=== PATIENT | female | born 2000 | race African-American/Black ===

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

== ENCOUNTER 2019-05-04 20:14 | Emergency (ER) ==
[2019-05-04 20:21] VITALS: BP 145/90; TEMP 98.6; BMI 21.4
[2019-05-04] MEDS ORDERED: TORADOL IM STA (20:54)
--- NOTE | 2019-05-04 20:59 | ED.PDOC ---
General ED Provider: Dr. SANDRA CHRISTOPHER Chief Complaint: Knee Pain/Injury Stated Complaint: Patient was lifing a "casualty " at training yesterday when they moved causing her to twist. The area is swollen mostly on the superior aspece of the knee. Has pain when she bends her knee. Time Seen by Physician: 20:55 Information Source: Patient Exam Limitations: No limitations Primary Care Provider: CHAU GLOVER Nursing and Triage Documentation Reviewed and Agree: Yes Does patient meet sepsis criteria?: No System Inflammatory Response Syndrome: Not Applicable Sepsis Protocol: For patient's 13 years and over: Temp is 96.8 and below OR 101 and greater Pulse >90 BPM Resp >20/minute Acutely Altered Mental Status Are patient's symptoms suggestive of a new infection, such as: -Pneumonia -Skin, Soft Tissue -Endocarditis -UTI -Bone, Joint Infection -Implantable Device -Acute Abdominal Infection -Wound Infection -Meningitis -Blood Stream Catheter Infection -Unknown Musculoskeletal Complaint Exam - Knee Pain Complaint/Exam Mechanism of Injury: Reports: Trauma Onset/Duration: 1 day Symptoms Are: Still present Onset of Pain: Reports: Immediate, Post accident Initial Severity: Moderate Current Severity: Moderate Location: Reports: Discrete (Suprapatella ) Character: Reports: Aching, Throbbing Alleviating: Reports: None Aggravating: Reports: Movement (Bending Knee ), Weight bearing Associated Signs and Symptoms: Reports: Swelling (warmth ) Able to Bear Weight: Yes (but has pain) Septic Arthritis Risk Factors: Reports: None Gout Risk Factors: Reports: None Knee Findings: Present: Swelling, Tenderness Tenderness: Present: Pre-patellar Merlin Test Positive: No Lud[place]ina Test Positive: No Limited Range of Motion: Present: Active, Patellar apprehension Knee Picture: 1 - tenderness to palpation and warmth Differential Diagnoses: Closed Fracture, Sprain, Strain Review of Systems - Review Of Systems Constitutional: Reports: No symptoms Eyes: Reports: No symptoms Ears, Nose, Mouth, Throat: Reports: No symptoms Respiratory: Reports: No symptoms Cardiac: Reports: No symptoms GI: Reports: No symptoms : Reports: No symptoms Musculoskeletal: Reports: Joint pain (Left knee ) Skin: Reports: No symptoms Neurological: Reports: No symptoms Endocrine: Reports: No symptoms Hematologic/Lymphatic: Reports: No symptoms All Other Systems: Reviewed and Negative Past Medical History - Past Medical History Previously Healthy: Yes Endocrine: Reports: None Cardiovascular: Reports: None Respiratory: Reports: None Hematological: Reports: None Gastrointestinal: Reports: None Genitourinary: Reports: None Neuro/Psych: Reports: None Musculoskeletal: Reports: None Cancer: Reports: None Last Menstrual Period: on bith control - Surgical History General Surgical History: Reports: None - Family History Family History: Reports: None - Social History Smoking Status: Never smoker Hx Substance Use: No Alcohol Screening: None - Immunizations Tetanus Shot up to Date: Yes Physical Exam - Physical Exam Appearance: Thin Pain Distress: Severe Respiratory: Airway patent Cardiovascular: RRR, Pulses normal, No rub, No murmur GI/: Soft, Nontender, No masses, Bowel sounds normal, No Organomegaly Musculoskeletal: Limited ROM (to flexsion > 90) Skin: Warm, Dry, Normal color Neurological: Alert, Oriented Psychiatric: Anxious Interpretation - Radiology Interpretation Radiology Interpretation By: Radiologist Radiology Results: Negative Exam Interpreted: Other (left knee x ray ) Re-Evaluation - Re-Evaluation Time of Re-Evaluation: 21:48 Status: Unchanged (despite Toradol ) Pain Level: 8/10 Critical Care Note - Critical Care Note Total Time (mins): 0 Course - Course Orders, Labs, Meds: Orders Category Date Time Status TREATMENT ORDER:NURSING ONCE CARE 05/04/19 20:54 Active JASON [ED JASON WRAP] .ONCE EMERGENCY 05/04/19 21:35 Active Ed After Hour Supply Med [Ed After Hours Supply Med MEDS 05/04/19 21:45 Once Sent Home] 1 each PO ONCE ONE Ketorolac Tromethamine [Toradol] MEDS 05/04/19 20:54 Discontinued 60 mg IM ONCE STA KNEE, LEFT 4 VIEWS Stat RADS 05/04/19 20:54 Completed Medications Discontinued Medications Generic Name Dose Route Start Last Admin Trade Name Freq PRN Reason Stop Dose Admin Ketorolac Tromethamine 60 mg 05/04/19 20:54 05/04/19 21:21 Toradol IM 05/04/19 20:55 60 mg ONCE STA Administration Miscellaneous Information 1 each 05/04/19 21:45 Ed After Hours Supply Med Sent Home PO 05/04/19 21:46 ONCE ONE Protocol Vital Signs: Temp Pulse Resp BP Pulse Ox 05/04/19 20:14 98.6 F 100 H 18 145/90 H 97 Departure - Departure Time of Disposition: 22:00 Disposition: HOME SELF-CARE Discharge Problem: Injury of knee, Suprapatellar bursitis of left knee Instructions: Knee Sprain (ED), Tendinitis (ED) Condition: Stable Pt referred to PMD for follow-up: Yes IPMP verified?: No Additional Instructions: Follow up with PCP in 3-5 days Use an Jason wrap to the Knee, Keep foot elevated when resting. Prescriptions: Hydrocodone Bit/Acetaminophen [[place] 5-325] 1 each PO Q6HR PRN #10 tablet PRN Reason: severe pain Ibuprofen [Motrin] 600 mg PO Q6H PRN #30 tablet PRN Reason: Analgesia Allergies/Adverse Reactions: Allergies No Known Allergies Allergy (Verified 05/04/19 20:25) Home Medications: Ambulatory Orders Etonogestrel [Nexplanon] 68 mg SQ DIRECTED 01/04/18 Hydrocodone Bit/Acetaminophen [[place] 5-325] 1 each PO Q6HR PRN #10 tablet Ibuprofen [Motrin] 600 mg PO Q6H PRN #30 tablet 05/04/19 Disposition Discussed With: Patient
--- NOTE | 2019-05-04 21:30 | DI ---
EXAM: Four views left knee HISTORY: Knee pain after lifting injury COMPARISON: None. FINDINGS/IMPRESSION: Alignment: Anatomic. Bones: No fracture or aggressive osseous lesion. Joint spaces: Preserved. Soft tissues: No joint effusion or focal swelling.
[2019-05-04] MEDS ORDERED: ED AFTER HOURS SUPPLY MED SENT HOME PO ONE (21:45)
[2019-05-04] MEDS ORDERED: NORCO 5-325 ONE ×2 (21:52)
== END 2019-05-04 22:03 | disposition home or self-care (01) ==
LOC: ED 20:14
DX: S89.92XA Unspecified injury of left lower leg, initial encounter (principal); M70.42 Prepatellar bursitis, left knee; X50.1XXA Overexertion from prolonged static or awkward postures, initial encounter
CPT/HCPCS: 96372; 99283